=== PATIENT | female | born 1995 | race Caucasian/White ===

== ENCOUNTER 2020-12-03 11:10 | Emergency (ER) | payer MEDICAID ==
[~2020-12-03] VITALS: Ht 152.4 cm; Wt 63.6 kg
[2020-12-03] MEDS ORDERED: ACETAMINOPHEN 500 MG TABLET PO ONE (12:45)
[2020-12-03 12:46] VITALS: BP 120/67
== END 2020-12-03 12:53 | disposition home or self-care (01) ==
LOC: EMS 11:15
DX: S61.101A Unspecified open wound of right thumb with damage to nail, initial encounter (principal); X58.XXXA Exposure to other specified factors, initial encounter; Y93.89 Activity, other specified; Y92.89 Other specified places as the place of occurrence of the external cause; Y99.8 Other external cause status
CPT/HCPCS: 99283